=== PATIENT | male | born 1930 | race Caucasian/White ===

== ENCOUNTER 2017-03-19 07:40 | Inpatient (IN) | payer OTHER ==
--- NOTE | 2017-03-19 07:36 | EDPHY ---
H & P Constitutional: Initial Vital Signs Temperature (C) 36.7 C 03/19/17 07:54 Heart Rate 92 03/19/17 07:54 Respiratory Rate 18 03/19/17 07:54 Blood Pressure 111/94 H 03/19/17 07:54 O2 Sat (%) 92 03/19/17 07:54 O2 Delivery Mode Room Air Allergies/Adverse Reactions: No Known Drug Allergies Allergy (Verified 03/19/17 09:40) Home Medications: Medication Instructions Recorded Multivitamins [Multivitamin (*)] 1 each PO DAILY 03/19/17 Medical Decision Making - Diagnostics Imaging Results: Imaging Impressions Hip X-Ray 03/19/17 07:46 Impression: 1. Rightward rotational change which limits assessment of the right medial lung base. 2. Old healed left-sided rib fractures with no acute right-sided rib fractures or pneumothorax identified. 3. COPD. PORTABLE AP RIGHT HIP, TWO VIEWS 8:49 a.m.: The patient is not optimally positioned for this exam. There appears to be an acute right femoral fracture at the base of the neck near the intertrochanteric line with slight varus angulation. The bones are demineralized. The ischiopubic rami are intact. There is no symphysis pubis or SI joint diastasis. Impression: Limited positioning reveals a proximal right femoral fracture at the base of the neck near the intertrochanteric line. PORTABLE RIGHT KNEE, SINGLE VIEW 8:51 a.m.: The exam is limited secondary to patient positioning. The distal femoral and proximal tibial prosthetic components are appropriately positioned, with no periprosthetic lucency. Impression: Limited evaluation detailing a right knee arthroplasty. Results were discussed with Dr. Isaiah Pérez at 9:30 a.m. on March 19, 2017. Knee X-Ray 03/19/17 07:46 Impression: 1. Rightward rotational change which limits assessment of the right medial lung base. 2. Old healed left-sided rib fractures with no acute right-sided rib fractures or pneumothorax identified. 3. COPD. PORTABLE AP RIGHT HIP, TWO VIEWS 8:49 a.m.: The patient is not optimally positioned for this exam. There appears to be an acute right femoral fracture at the base of the neck near the intertrochanteric line with slight varus angulation. The bones are demineralized. The ischiopubic rami are intact. There is no symphysis pubis or SI joint diastasis. Impression: Limited positioning reveals a proximal right femoral fracture at the base of the neck near the intertrochanteric line. PORTABLE RIGHT KNEE, SINGLE VIEW 8:51 a.m.: The exam is limited secondary to patient positioning. The distal femoral and proximal tibial prosthetic components are appropriately positioned, with no periprosthetic lucency. Impression: Limited evaluation detailing a right knee arthroplasty. Results were discussed with Dr. Isaiah Pérez at 9:30 a.m. on March 19, 2017. Head CT 03/19/17 07:47 Impression: 1. Limited due to patient motion artifact. 2. Right frontal petechial hemorrhage measuring 1 cm without mass effect. 3. Cerebrovascular atherosclerosis. 4. No definite acute infarct. 5. Moderate diffuse atrophy. 6. Moderate ischemic gliosis. 7. Recommend follow up. Findings and recommendations discussed with Emergency Department physician, Isaiah Pérez M.D. at 0810 hours, March 19, 2017. Final report concurs with initial preliminary interpretation. Chest X-Ray 03/19/17 09:08 Impression: 1. Rightward rotational change which limits assessment of the right medial lung base. 2. Old healed left-sided rib fractures with no acute right-sided rib fractures or pneumothorax identified. 3. COPD. PORTABLE AP RIGHT HIP, TWO VIEWS 8:49 a.m.: The patient is not optimally positioned for this exam. There appears to be an acute right femoral fracture at the base of the neck near the intertrochanteric line with slight varus angulation. The bones are demineralized. The ischiopubic rami are intact. There is no symphysis pubis or SI joint diastasis. Impression: Limited positioning reveals a proximal right femoral fracture at the base of the neck near the intertrochanteric line. PORTABLE RIGHT KNEE, SINGLE VIEW 8:51 a.m.: The exam is limited secondary to patient positioning. The distal femoral and proximal tibial prosthetic components are appropriately positioned, with no periprosthetic lucency. Impression: Limited evaluation detailing a right knee arthroplasty. Results were discussed with Dr. Isaiah Pérez at 9:30 a.m. on March 19, 2017. Hip X-Ray 03/19/17 09:48 Impression: Acute mildly displaced right femoral neck fracture. Imaging: Discussed imaging studies w/ scallop cutter machine Radiologist ED Course/Re-evaluation: CHIEF COMPLAINT: Traumatic knee pain HISTORY OF PRESENT ILLNESS: The patient is a 86 y/o male, who lives independently at [facility], arriving via ambulance for right knee pain secondary to a witnessed fall this morning. Patient nor facility staff are initially unable to provide any medical history. ED RN contacted staff and they report he lives independently and has no significant medical diagnoses; however , he is scheduled to move to a memory care unit at the end of the month. They deny anticoagulant use. Per EMS, staff described a mechanical fall. The patient was walking with a breakfast tray and stumbled, falling to the ground and landing on his right side. The patient only complains of pain to his right knee but his right leg is significantly shortened and externally rotated. REVIEW OF SYSTEMS: A 10 point review of systems was performed and is negative with the exception of the elements mentioned in the history of present illness. PHYSICAL EXAM: HR, BP, O2 Sat, RR. Temp noted General Appearance: Alert, well hydrated, disoriented, and non-toxic appearing. Head: Small non-suturable abrasion to right eyebrow. Otherwise atraumatic without scalp tenderness or obvious injury Eyes: Pupils equal, round, reactive to light and accommodation, EOMI, no trauma , no injection. Throat: There is no erythema or exudates, no lesions, normal tonsils, mucus membranes moist. Neck: Supple, nontender, no lymphadenopathy. Respiratory: No retractions, no distress, no wheezes, and no accessory muscle use. Lungs are clear to auscultation bilaterally. Cardiovascular: Regular rate and rhythm, no murmurs, rubs, or gallops. Right dorsalis pedis pulse intact. Good capillary refill all extremities. Gastrointestinal: Abdomen is soft, nontender, non-distended, no masses, no rebound, no guarding, no peritoneal signs. Musculoskeletal: Tenderness to right knee and right hip, ROM differed due to pain. Leg is short and externally rotated. Otherwise, other main extremities have active ROM, atraumatic. No chest wall tenderness. Neurological: Alert, confused, and interactive. Non-focal neuro exam. Reported dementia at baseline. Skin: No rashes, good turgor, no nodules on palpation. Past medical history: No anticoagulant use Past surgical history: Right knee replacement Family history: Unknown Social history: Lives in independent living at [facility]. DIAGNOSTICS/PROCEDURES/CRITICAL CARE TIME: Head CT showed small right frontal petechial hemorrhage. Right hip X-ray showed right impacted femoral neck fracture. Right knee X-ray shows knee prior replacement. I viewed the image myself. DIFFERENTIAL DIAGNOSIS: The differential diagnosis for the patient's trauma included but was not limited to petechial hemorrhage, right femoral neck fracture, intracranial injury, long bone and pelvic bone fractures, spinal injury, intra-abdominal injury, and intra-thoracic injury. MEDICAL DECISION MAKING: This is an elderly 86 y/o male who presents with acute right hip tenderness secondary to what sounds like a mechanical fall this morning. He is confused, but after discussion with [facility] staff, this sounds like it is his baseline and he is scheduled for transfer to memory care unit. Further history limited, though facility denies anticoagulant use. He has a shortened and externally rotated right leg and a small abrasion to his right eyebrow on exam. Plan for IV, labs, UA, head, hip, and leg imaging, and pain management with 0.5 mg IV Dilaudid. Head CT shows small right frontal petechial hemorrhage per Dr. Horan. Hip x- ray shows femoral neck fracture. Patient will require admission for surgical repair of his fracture as well as neurosurgery consult for intracranial hemorrhage. Chest x-ray is negative for acute process. 0920: Consulted with Dr. Holguin, neurosurgery. He will come assess patient in the ED. 0924: Consulted with Dr. Robbins, trauma surgeon. He will evaluate patient in the ED. 0937: Consulted with Dr. Rene, orthopedist. He will evaluate patient after trauma service has assessed him. 1015: Consulted in the ED with Dr. Jacob, neurosurgery. He recommendation repeat head CT in 4 hours if patient has not gone to surgery. Cleared for surgery. Repeated hip x-ray with traction to better visualize fracture. Results clearly show femoral neck fracture and not intertrochanteric fracture. Dr. Freeman and Dr. Jacob have cleared patient for hip surgery. Dr. Rene plans to repair the hip today. Spoke with the hospitalist service and Dr. Laird accepts admission. - Data Points Laboratory Results: Laboratory Results 03/19/17 08:43 03/19/17 08:43 03/19/17 03/19/17 03/19/17 08:43 08:43 08:43 WBC 9.31 10^3/uL 10^3/uL (3.80-9.50) RBC 5.14 10^6/uL 10^6/uL (4.40-6.38) Hgb 15.9 g/dL g/dL (13.7-17.5) Hct 46.8 % % (40.0-51.0) MCV 91.1 fL fL (81.5-99.8) MCH 30.9 pg pg (27.9-34.1) MCHC 34.0 g/dL g/dL (32.4-36.7) RDW 15.9 % H % (11.5-15.2) Plt Count 222 10^3/uL 10^3/uL (150-400) MPV 10.0 fL fL (8.7-11.7) Neut % (Auto) 78.4 % H % (39.3-74.2) Lymph % (Auto) 11.9 % L % (15.0-45.0) [place] % (Auto) 7.8 % % (4.5-13.0) Eos % (Auto) 0.8 % % (0.6-7.6) Baso % (Auto) 0.5 % % (0.3-1.7) Nucleat RBC Rel Count 0.0 % % (0.0-0.2) Absolute Neuts (auto) 7.29 10^3/uL H 10^3/uL (1.70-6.50) Absolute Lymphs (auto) 1.11 10^3/uL 10^3/uL (1.00-3.00) Absolute Monos (auto) 0.73 10^3/uL 10^3/uL (0.30-0.80) Absolute Eos (auto) 0.07 10^3/uL 10^3/uL (0.03-0.40) Absolute Basos (auto) 0.05 10^3/uL 10^3/uL (0.02-0.10) Absolute Nucleated RBC 0.00 10^3/uL 10^3/uL (0-0.01) Immature Gran % 0.6 % % (0.0-1.1) Immature Gran # 0.06 10^3/uL 10^3/uL (0.00-0.10) PT 14.7 SEC SEC (12.0-15.0) INR 1.15 (0.83-1.16) APTT 32.7 SEC SEC (23.0-38.0) Sodium 139 mEq/L mEq/L (134-144) Potassium 4.4 mEq/L mEq/L (3.5-5.2) Chloride 107 mEq/L mEq/L (97-110) Carbon Dioxide 22 mEq/l mEq/l (22-31) Anion Gap 10 mEq/L mEq/L (8-16) BUN 13 mg/dL mg/dL (7-23) Creatinine 0.8 mg/dL mg/dL (0.7-1.3) Estimated GFR > 60 Glucose 106 mg/dL H mg/dL (70-100) Calcium 9.1 mg/dL mg/dL (8.5-10.4) Medications Given: Discontinued Medications Hydromorphone HCl (Dilaudid) 0.5 mg IVP EDNOW ONE Stop: 03/19/17 09:54 Last Admin: 03/19/17 10:16 Dose: 0.5 mg Departure - Departure Disposition: [facility] Inpatient Acute Clinical Impression: Petechial hemorrhage Femoral neck fracture Qualifiers: Encounter type: initial encounter Fracture type: closed Laterality: right Qualified Code(s): S72.001A - Fracture of unspecified part of neck of right femur, initial encounter for closed fracture Condition: Fair Report Scribed for: Isaiah Pérez Report Scribed by: Lokesh Hickey Date of Report: 03/19/17 Time of Report: 07:50
[2017-03-19 08:50] LABS: % IMMATURE GRANULYOCYTES 0.6 % (0.0-1.1); ABSOLUTE IMMATURE GRANULOCYTES 0.06 10^3/uL (0.00-0.10); ADD DIFF? NO; ADD MORPH? NO; ADD SCAN? NO; ATYPICAL LYMPHOCYTE FLAG 0 (0-99); FRAGMENT RBC FLAG 0 (0-99); HEMATOCRIT 46.8 % (40.0-51.0); HEMOGLOBIN 15.9 g/dL (13.7-17.5); LEFT SHIFT FLG 10 (0-99); LIPEMIA HEMOLYSIS FLAG 90 (0-99); MEAN CELL HEMOGLOBIN 30.9 pg (27.9-34.1); MEAN CELL VOLUME 91.1 fL (81.5-99.8); PLATELET CLUMPS FLAG 0 (0-99); PLATELET COUNT 222 10^3/uL (150-400); RED BLOOD CELL COUNT 5.14 10^6/uL (4.40-6.38); RED CELL DISTRIBUTION WIDTH 15.9 % (11.5-15.2)
[2017-03-19 09:13] LABS: ANION GAP 10 mEq/L (8-16); CALCIUM 9.1 mg/dL (8.5-10.4); CARBON DIOXIDE 22 mEq/l (22-31); CHLORIDE 107 mEq/L (97-110); CREATININE 0.8 mg/dL (0.7-1.3); GLOMERULAR FILTRATION RATE > 60; GLUCOSE 106 mg/dL (70-100); POTASSIUM 4.4 mEq/L (3.5-5.2); SODIUM 139 mEq/L (134-144)
[2017-03-19 09:18] LABS: INR 1.15 (0.83-1.16); PROTIME(PATIENT) 14.7 SEC (12.0-15.0)
[2017-03-19 09:19] LABS: APTT 32.7 SEC (23.0-38.0)
[2017-03-19] MEDS ORDERED: HYDROmorphONE/DILAUDID 1 MG/ML SYR IVP ONE (09:53)
--- NOTE | 2017-03-19 10:44 | GCON ---
[f rep st] CONSULTATION HISTORY OF PRESENT ILLNESS: This is an 86-year-old gentleman, who had a witnessed fall at [facility] where he resides, and was found to have had a head injury, and complained of right hip pain. Th e patient was brought to the emergency room for evaluation. X-rays at the time, shows a right hip f racture, and a small cortical bleed, which has been evaluated by Dr. Adames from neurosurgery, and de emed stable, and non-operative. No need for inpatient evaluation or further care. The patient has no known past medical history, is unable to give us that information because of jean-pierre ntia. ALLERGIES: He has no known drug allergies. MEDICATIONS: Takes multivitamins at his [facility]. REVIEW OF SYSTEMS: The patient denies any current pain or problems. His medical history seems to be significant for having a previous knee replacement on the left, othe rwise, none is available. PHYSICAL EXAMINATION: VITAL SIGNS: Temperature of 36, 7, heart rate of 92, blood pressure of 111/9 4, with a respiratory rate of 18, saturating 92% on room air. GENERAL: He is alert, but disoriente d. He cannot tell us where he is. He believes he is back in [facility]. HEENT: He has intac t extraocular motions. Pupils are equal and 3 mm. His right gnosticism has a small dried laceration, w ith dried blood on it, less than 1 cm accumulative. His bite is intact. NECK: Midline trachea. No JVD, thyromegaly, 2+/2+ carotid pulses. He has no bony deformity of the chest cage. He has no t enderness to palpation or unstableness to compression. ABDOMEN: Soft, it is protuberant. There ar e no signs of intraabdominal injury. No [place] sign. EXTREMITIES: His hip on the right is tender to palpation and movement. His left hip is nontender. He has good pulses, 2+/2+ femoral bilaterall y, and weak 1+/2+ equal posterior tibial pulses. He has no rashes, no skin change in turgor or tone . LABORATORY STUDIES: Show a white blood cell count of 9.3, hemoglobin of 15, hematocrit of 46, plate let count of 222. He has coagulation showing INR of 1.15. Chemistry showed sodium 139, potassium 4 .4, chloride 107, bicarb 22, BUN 13, creatinine 0.7, and glucose of 106, which is slightly elevated. All of his films have been personally reviewed by me. Hip x-ray shows an acute right femoral intert rochanteric fracture. Left knee, old, is not performed. Chest x-ray shows old rib fractures, with no left-sided rib fractures. No acute right-sided rib fractures. Head CT is also personally review ed. He has a frontal petechial hemorrhage, less than 1 cm without mass effect, atherosclerosis. IMPRESSION: From a trauma standpoint, is that he has a single isolated injury to his right trochant er and a non-operative intraparenchymal bleed that is stable. He has been cleared by Neurosurgery t o be discharged back to his care facility straight from the hospital without need for inpatient care . Deemed fine to go to the operating room, and I believe he can be admitted by Medicine, and follow ed by them. I will be happy to reassess if need be. /[id number]/MODL
[2017-03-19] MEDS ORDERED: ONDANSETRON 4 MG/2 ML VIAL IVP PRN (10:56)
[2017-03-19] MEDS ORDERED: ONDANSETRON DISINTEGRATING 4 MG TAB PO PRN (10:56)
[2017-03-19] MEDS ORDERED: oxyCODONE IR 5 MG TAB PO PRN (10:56)
--- NOTE | 2017-03-19 11:49 | GHP ---
[f rep st] HISTORY AND PHYSICAL DATE OF ADMISSION: 03/19/2017 CHIEF COMPLAINT: Fall. HISTORY OF PRESENT ILLNESS: This is an 86-year-old man, who lives independently at [facility], presented with a fall. He tells me he thinks he fell on his back a few days ago. In reading the E D report, it sounds as though he had a witnessed fall this morning. He was then sent in by EMS. He tells me that he does have some pain in his hip. He has feeling in his foot. He can move his foot . He does not have any weakness in his upper or lower extremities. He has sensation throughout. H e is mostly fixated on allergies that he and some childhood friends had, more so than what is going on currently. He does, however, tell me that he can walk a few miles before he gets tired. PAST MEDICAL/SURGICAL HISTORY: Dementia. MEDICATIONS: Please see my medication reconciliation. ALLERGIES: There are no known drug allergies. It sounds as though he has seasonal allergies. SOCIAL HISTORY: He lives independently at [facility]. He grew up in [facility]. FAMILY HISTORY: Parents are . REVIEW OF SYSTEMS: A 10-point review of systems is conducted and is negative except per HPI. PHYSICAL EXAM: VITAL SIGNS: Blood pressure 111/94, heart rate 92, respiration rate 18, saturating 98% on room air, temperature is 36.7. GENERAL: The patient is a pleasant elderly man, who is lying on his back. Appears somewhat uncomfortable. HEENT: Shows him to have a small amount of clotted blood in his right forehead. CARDIOVASCULAR: Shows him to have very distant S1 and S2. I am not a ppreciating any murmurs, rubs, or gallops. PULMONARY: Shows his lungs to be clear to auscultation bilaterally. ABDOMEN: Soft, nontender, nondistended. SKIN: No rash : There is no Blue. NEUR OLOGIC: Shows him to have some trouble with recent events. He has 5/5 motor in his upper and lower extremities. He has sensation to light touch intact in his upper and lower extremities. PSYCHIATR IC: Shows normal mood and affect. EXTREMITIES: Shows his right lower extremity to be externally r otated, and slightly shortened. He is able to move his foot, and his foot is warm. LABORATORY DATA: 1. CBC is unremarkable. INR is 1.1. Basic metabolic panel is normal. 2. I reviewed Dr. Freeman's consult note. 3. Hip x-ray, which I personally reviewed and interpreted, shows a femoral neck fracture. 4. Chest x-ray, which I personally reviewed and interpreted, shows nothing acute. 5. Knee x-ray shows a right knee arthroplasty. 6. Head CT scan shows a small 1 cm right frontal petechial hemorrhage without mass effect. IMPRESSION AND PLAN: An 86-year-old man with a fall presents with right hip fracture and small intr acranial petechial hemorrhage. 1. Right hip fracture: Dr. Rene plans to take him to the operating room today. In terms of hi s perioperative evaluation, he tells me that he is able to ambulate for miles without getting short of breath or having to stop. He can attain 4 METs. I will go ahead and get a preoperative EKG. 2. Small intracranial hemorrhage: Appreciate Neurosurgery's evaluation. They are recommending a f ollowup CT in 4 hours. I have requested that they weigh in on whether or not prophylactic anticoagu lation would be safe following his hip surgery for hip fracture, which would put him at high risk fo r a clot. 3. Dementia: Has been living independently; however, family had planned to move him into a memory care unit at the end of this month. 4. Code status: I reviewed his MOLST form in which he is a do not resuscitate. He would want anti biotics, but did not weigh in on artificially administered nutrition and hydration. /[id number]/MODL
[2017-03-19] MEDS: NS 1,000 ML IV SCH (12:39)
[2017-03-19] MEDS: HYDROmorphONE/DILAUDID 1 MG/ML SYR IVP PRN (12:43)
--- NOTE | 2017-03-19 13:10 | CPEKG ---
Heart Rate: 80 RR Interval: 750 P-R Interval: 244 QRSD Interval: 116 QT Interval: 428 QTC Interval: 494 P Mckenzie: -33 QRS Mckenzie: 119 T Wave Mckenzie: 140 EKG Severity - ABNORMAL ECG - EKG Impression: FIRST DEGREE AV BLOCK EKG Impression: IRBBB AND LPFB EKG Impression: WANDERING ATRIAL PACEMAKER Electronically Signed By: Nathaniel Starks 19-Mar-2017 16:32:25
--- NOTE | 2017-03-19 13:24 | GCON ---
[f rep st] CONSULTATION NEUROSURGICAL CONSULTATION DATE OF CONSULTATION: 03/19/2017, approximately 11:00 a.m in the Emergency Room. REASON FOR CONSULTATION: Intracranial bleed. HISTORY OF PRESENT ILLNESS: History difficult to obtain due to patient's advanced dementia. Much of his history was obtained through review of his medical record. This patient is an 86-year-old male who was brought in by ambulance after a mechanical fall at his independent living facility, [facility]. He was witnessed walking during breakfast when he stumbled and fell to the ground landing on his right side. After the fall the patient complained of right knee pain and EMS was called. It is unkown if the patient suffered loss of consciousness following the injury. Patient does not recall the event. The staff at his facility states he is scheduled to move into a memory care unit at the end of the month. Patient was found to have a hip fracture while in the ED. Patient denies any headache, dizziness or extremity weakness.Patient does complain of dry mouth, REVIEW OF SYSTEMS: Review of systems was performed and is negative with the exception of what is noted in the HPI. PAST MEDICAL HISTORY: Difficult to obtain due to patient's advanced dementia. Review of the medical record does not provide further information PAST SURGICAL HISTORY: Significant for right knee replacement. FAMILY HISTORY: Unknown due to patient's advanced dementia. SOCIAL HISTORY: Unknown due to patient's advanced dementia. MEDICATIONS: Unknown due to patient's advanced dementia ALLERGIES: NKDA PHYSICAL EXAM: VITAL SIGNS: Temperature 36.7, heart rate 92, respiratory rate 18, blood pressure 111/94, oxygen saturation 92% on room air. GENERAL APPEARANCE : Alert but disoriented. No acute distress. EYES: PERRLA. EOMs intact. NEUROLOGIC: Cranial nerves 2-12 grossly intact 2 through. Strength 5/5 bilateral upper and lower extremities and equal. Right leg difficult to examine due to hip fracture. Sensation grossly intact. DIAGNOSTIC REVIEW: CT brain without contrast shows right frontal petechial hemorrhage measuring 1 cm without mass effect, cerebral vascular atherosclerosis. No dependent definite acute infarct. Moderate diffuse atrophy. Moderate ischemic gliosis. ASSESSMENT AND PLAN: 86 year old male s/p GLF at this snf who has evidence of a small intracranial bleed. He also was found to have a right hip fracture. Patient was seen by Dr. Jacob and myself in the ER today. Would recommended a repeat head CT in [address] stable, cleared to go to operating room for repair of hip fracture. Recommend Q2 hr neuro checks. Recommendation on DVT prophylaxis will be based on results of repeat head CT. 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 Will continue to follow. Please notify neurosurgery with any change in neuro or motor exam /[id number]/MODL Eboni Kong MA, MPAS PAC MTDD
--- NOTE | 2017-03-19 13:39 | SOAPPROG ---
SOAP Progress Note Assessment/Plan: Assessment: 86 yo M with displaced, transcervical left femoral neck fx, and small IC petechial hemorrhage. Plan: I discussed case with MPOA - Rohith Newton, in [place] and pt's cousin ( , home [phone]). R/B/A of non-op vs op care discussed. He has stated that Mr Kasper would want his hip fixed to restore ambulation. He will provide phone consent for the surgery. All of his questions have been answered. We will proceed with cemented L hip bipolar hemiarthroplasty once medically cleared and deemed safe by Marlen santos 2/2 [facility]. Per my discussion with Dr Jacob, repeat CT will be done within next 30 mins to reassess IC hemorrhage. Keep NPO. Bedrest. TEDs/SCDs. Abx to be ordered. Please call with any ?s. 03/19/17 13:39 03/19/17 13:45 Subjective: 86yo M s/p mechanical fall this AM, while walking with his breakfast tray, striking his left hip and head. He was unable to bear weight after his fall. He did not eat any of his breakfast per Keith Aguilar' report. He c/o R hip pain, denying any numbness or tingling. Objective: Vital Signs Temp Pulse Resp BP Pulse Ox 37.0 C 86 22 H 125/88 H 92 03/19/17 11:35 03/19/17 11:35 03/19/17 11:35 03/19/17 11:35 03/19/17 11:35 PT 14.7 SEC (12.0-15.0) 03/19/17 08:43 INR 1.15 (0.83-1.16) 03/19/17 08:43 R hip w/o ecchy/edema/calor/erythema. Skin intact. Min TTP. +logroll. In ER and shortened. No TTP thigh --> foot of RLE. Calves NT, neg Qiana's, no edema. DNVI BLE's. Secondary survey negative. ICD10 Worksheet Patient Problems: Problems Problem Status Onset Femoral neck fracture Acute Petechial hemorrhage Acute
[2017-03-19] MEDS ORDERED: BUPIVACAINE/EPI 0.25% 30 ML SDV ONE ×2 (15:05→18:15)
--- NOTE | 2017-03-19 15:20 | GCON ---
[f rep st] CONSULTATION ORTHOPEDIC CONSULTATION DATE OF CONSULTATION: 03/19/2017 CHIEF COMPLAINT (REASON FOR REFERRAL): This 86-year-old male was brought in from [facility] ere he resides with a right hip fracture. He was initially seen in the emergency department and [facility] was requested. HISTORY OF PRESENT ILLNESS: The patient lives independently at [facility] and was walking with his breakfast tray this morning when he tripped and fell onto the right side of his body. This was a witnessed fall. The ambulance was called and he was then brought to the emergency department whe re he was evaluated. The patient is somewhat of a poor historian but does say that he is having rig ht leg pain at this time. He denies any other pain at the time of my exam. Upon review of the [facility] ent's chart, it is noted that the patient was to soon be moved into a memory care unit at the end of this month at [facility]. Currently, the patient is denying any headache, dizziness, nausea, vomiting or abdominal pain. REVIEW OF SYSTEMS: Reviewed and is negative except as mentioned above. PAST MEDICAL HISTORY: The patient has had a right knee replacement. It is also reported that the p atyvette has a history of dementia. When speaking with [facility], it was reported that he other clements does not have any known medical conditions. ALLERGIES: No known drug allergies. SOCIAL HISTORY: The patient lives independently at [facility]. FAMILY HISTORY: Patient's parents are . PAST SURGICAL HISTORY: Significant for a known right knee replacement. PHYSICAL EXAMINATION: VITAL SIGNS: Patient's temperature is 36.7, heart rate of 92, respiratory ra te of 18, blood pressure 111/94 with oxygen saturation at 92% on room air. GENERAL APPEARANCE: The patient is tired but I am able to wake him and ask him questions which he seems to be answering carlos ropriately. He does not appear to be in any acute distress. HEENT: Eyes: Pupils are equal, round , reactive to light. Extraocular movements are intact. The nose reveals patent nares with no bleed ing. Oral exam reveals dry mucous membranes but no intraoral injury visible. NECK: Palpation of t he patient's neck does not reveal any tenderness over the cervical spine. I am able to help him rot ate his neck and flex and extend and this did not cause any increased pain. I do not feel any step offs or deformities at the cervical spine. Anteriorly, he is nontender and does not have any thyroi d enlargement or masses palpable. LUNGS: Patient's breathing is unlabored. Lungs are clear to aus cultation without any wheezes, rhonchi, or rales. CARDIOVASCULAR: Patient has a regular rate and r hythm, with no audible murmurs, rubs or gallops. Distally, his pulses are equal and intact. He has normal capillary refill in both upper and lower extremities. NEUROVASCULAR: Patient has good sens ation to light touch to both upper extremities and lower extremities equally. GASTROINTESTINAL: Fredrick evangelista's abdomen is soft, nontender with no rebound, rigidity or guarding. No masses are palpated. MUSCULOSKELETAL: Patient does have tenderness at the right hip and is resting in an externally rota andrew position. The remainder of his leg appears normal and I am not able to elicit any tenderness; h owever, I did not take him through full range of motion of the right lower extremity given the known hip fracture. The rest of his extremities, in addition to his chest and ribs, are nontender to pal pation. SKIN: The patient has 3 superficial abrasions/lacerations above the right eyebrow. These are not actively bleeding and he does not seem to have any hematoma around these. The orbits are no ntender. DIAGNOSTIC DATA: X-ray of the right hip was obtained in the emergency department which does show a right femur fracture at the base of the neck near the intertrochanteric line with varus angulation. He had a right knee x-ray which does not show any acute injury. He has had a previous right knee r eplacement, as mentioned above. A portable AP supine chest was also done and shows some old left-sided healing rib fractures but no acute right-sided rib fractures or pneumothorax. Patient also has COPD noted on his chest x-ray. A head CT without contrast was also ordered and did show a 1 cm frontal petechial hemorrhage without mass effect. EKG was ordered which shows a first-degree AV block as well as a wandering pacemaker. This was inte rpreted by Dr. Laird. IMPRESSION/PLAN: This 86-year-old man presents with a right hip fracture and a small intracranial p etechial hemorrhage. 1. Right hip fracture. Dr. Rene plans to take the patient to surgery later this afternoon to r epair the hip fracture. 2. The patient has a small intracranial hemorrhage and is currently having a second CT to evaluate the status of this bleed. After this is completed, DVT prophylaxis will be assessed. The patient w ill shortly be consented for surgery when he returns from his CT scan. /[id number]/MODL
[2017-03-19] MEDS ORDERED: ceFAZolin 2 GM/DEXTROSE 100 ML IV ONE (16:30)
[2017-03-19] MEDS ORDERED: LIDOCAINE 2% 100 MG/5 ML SYR ONE (16:39)
[2017-03-19] MEDS ORDERED: DEXAMETHASONE 4 MG/ML VIAL ONE (16:39)
[2017-03-19] MEDS ORDERED: ONDANSETRON 4 MG/2 ML VIAL ONE (16:39)
[2017-03-19] MEDS ORDERED: fentaNYL 100 MCG/2 ML INJ ONE (16:39)
[2017-03-19] MEDS ORDERED: PROPOFOL 200 MG/20 ML VIAL ONE (16:40)
[2017-03-19] MEDS ORDERED: epHEDrine SULFATE 10 MG/ML SYR ONE (18:29)
--- NOTE | 2017-03-19 19:14 | POSTOPPROG ---
Post Op Note Date of Operation: 03/19/17 Surgeon: Filippo Rene Guardian Ad Litem: CHRISTEN Eagle Anesthesia: GET(General Endotracheal) Pre-op Diagnosis: R fem neck fx Post-op Diagnosis: same Procedure: R hip teodoro Findings: TC closed R fem neck fx Inf/Abcess present in the surg proc area at time of surgery?: No EBL: 50-100 (75cc) Complications: None Specimen(s): None
--- NOTE | 2017-03-19 20:30 | GOP ---
[f rep st] OPERATIVE REPORT DATE OF OPERATION: 03/19/2017 SURGEON: Filippo Rene MD PAPER GRADER: Michelle Snowden PA-C. ANESTHESIA: General. ANESTHESIOLOGIST: Dr. Bailey. PREOPERATIVE DIAGNOSIS: Right femoral neck fracture. POSTOPERATIVE DIAGNOSIS: Right femoral neck fracture. PROCEDURE PERFORMED: Right hip bipolar hemiarthroplasty. FINDINGS: Comminuted and transcervical closed right femoral neck fracture with complete displacemen t. 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 Bone quality was good. SPECIMENS: None. ESTIMATED BLOOD LOSS: 75 cc. INDICATIONS: 86-year-old male, who suffered a fall while walking with his breakfast tray at his [facility] center. This was apparently a mechanical fall as witnessed by the staff at his living center. He was unable bear weight at the time and therefore was brought to the emergency department. He was found to have a right hip fracture. After discussing the risks, benefits, alternatives with his [facility] power of workers compensation defense attorney, who is his cousin living in [place], they elected to proceed with surgery . The risks, benefits, and alternatives were discussed. A phone consent was obtained and placed in the patient's chart. All questions were answered prior to surgery. DESCRIPTION OF PROCEDURE: The patient was identified in the preop holding area, and his right hip w as signed and designated as the operative site. The patient was confirmed in left lower extremity S CD. He was treated with 2 g IV prophylactic cefazolin, and taken back to the operating room by the anesthesia team. General anesthesia was obtained. A Blue was placed. The patient was then transf erred from his gurney to the OR table in the lateral decubitus position, and positioned with standar d hip auto parts manager. Down leg was padded around the proximal fibula as well as heel and ankle with foam egg crate padding. The right lower extremity was then prepped and draped in the usual sterile manner. Standard posterolateral approach was utilized for the surgery. A 12 cm curvilinear incision was will tered over the greater trochanter. Full-thickness dermal incision was made with a #10 blade and car eful dissection was taken down through the subcutaneous fat with Bovie cautery device. All small cr ossing vessels were coagulated. The IT band was identified and divided from the greater trochanter inferiorly in parallel with its fibers. Then careful dissection was taken posteriorly through the v moon thin gluteus christofer muscle fibers. The underlying greater trochanteric bursa was excised. A C harnley retractor was placed. With sequential internal rotation, the posterior dissection was carried along the posterior aspect o f the greater trochanter. The piriformis tendon was identified and tagged and then released from it s insertion site at the greater trochanter. The short external rotators were then carefully release d from their insertions at the greater trochanter and vessels were coagulated. Capsular stitches we re placed with #1 Ethibond sutures. With further internal rotation, the proximal femur was exposed appropriately and careful dissection was taken down to the level of the lesser trochanter. A standa rd neck cut was then placed approximately 1 fingerbreadth superior to the lesser trochanter. The fr actured segment was then removed from the surgical field. The femoral head was then identified and a pointed reamer was utilized in order to thread into the femoral head and then resection of the fem oral head was obtained with removal from the joint in toto. The head was inspected and sized to 52 mm. An additional ball sizing device was utilized in order to confirm appropriate sizing within the acetabulum. The joint was then copiously irrigated with sterile saline. A small loose body was re moved from the femoral acetabular joint. With the femoral elevator and blunt Hohmann placed underneath the neck, a box osteotome was used to enter the proximal femur. A sounding reamer was first utilized and then the patient was reamed up t o a size 5 distally. Next, standard sequential broaching was performed with approximately 25-30 deg karmen of anteversion. A size 5 broach was then found to be of the appropriate fit and this was left in place for trialing. A 26 x 52 mm standard neck with neck length of 25 mm was utilized and neck a ngle of 132 degrees. This was found to be very stable with appropriate leg lengths testing and norm al rectus test. He was stable to 45 degrees of internal rotation with flexion to 90 degrees. In sl eep position he was stable, and with internal rotation he was further stable to about 45 degrees. A s a result, the trial component was removed and the proximal femur was readied for cementation. A distal cement restrictor was placed. A third generation cementing technique was utilized after pr eparation of the femur with pulsatile lavage and suction. The femoral stem was then cemented in carlos roximately 25 degrees of anteversion and with the stem entirely seated down along the calcar. This was held in place and the cement was allowed to harden and mature. Once this was completed, a 2nd t rial was performed with the trial components. This was again found to be an appropriate reconstruct ion. Formal bipolar head was then placed onto the Tilley taper with excellent Tilley taper engagement confirmed by attempts to dislodge the head. Final reduction was performed. The patient was exceed ingly dry without any significant bleeding and therefore no drain was used. The wound and joint wer e again copiously irrigated with sterile saline. Closure was then begun. Multiple drill holes through the posterior aspect of the greater trochanter were utilized to repair the capsule via the capsular stitches. Piriformis was repaired down to the superior aspect of the g reater trochanter. Next, the IT band was closed with multiple interrupted #1 Ethibond sutures. The deep fat space was closed with multiple 0 Vicryl sutures. 2-0 Vicryl was used to close the deep de rmal layer. Norton were then finally used to close the skin. Sterile postop surgical dressings we re applied. An abduction pillow was applied after bilateral lower extremity WHITNEY hose and SCDs. The patient was then returned to the supine position and transferred to his gurney, and the anesthesia service took over to wake him up. TOURNIQUET TIME: None. DRAINS: None. IMPLANTS: [place] OmniFit HFx hip stem size #5 with a neck length of 25 mm, a neck angle of 132 deg karmen. A 26 x 52 mm UHR [place] bipolar head and components. A distal cement restrictor was place d. COMPLICATIONS: None. DISPOSITION: The patient was extubated and transferred to PACU in stable condition. /[id number]/MODL
[2017-03-20 04:47] LABS: % IMMATURE GRANULYOCYTES 0.7 % (0.0-1.1); ABSOLUTE IMMATURE GRANULOCYTES 0.12 10^3/uL (0.00-0.10); ADD DIFF? NO; ADD MORPH? NO; ADD SCAN? NO; ATYPICAL LYMPHOCYTE FLAG 0 (0-99); FRAGMENT RBC FLAG 20 (0-99); HEMATOCRIT 38.4 % (40.0-51.0); HEMOGLOBIN 12.9 g/dL (13.7-17.5); LEFT SHIFT FLG 10 (0-99); LIPEMIA HEMOLYSIS FLAG 80 (0-99); MEAN CELL HEMOGLOBIN 31.9 pg (27.9-34.1); MEAN CELL HEMOGLOBIN CONCENTR. 33.6 g/dL (32.4-36.7); MEAN CELL VOLUME 94.8 fL (81.5-99.8); MEAN PLATELET VOLUME 10.4 fL (8.7-11.7); PLATELET CLUMPS FLAG 0 (0-99); PLATELET COUNT 206 10^3/uL (150-400); RED BLOOD CELL COUNT 4.05 10^6/uL (4.40-6.38); RED CELL DISTRIBUTION WIDTH 15.9 % (11.5-15.2)
[2017-03-20 05:07] LABS: ALANINE AMINOTRANSFERASE 36 IU/L (21-72); ALBUMIN 2.8 g/dL (3.5-5.0); ALKALINE PHOSPHATASE 83 IU/L (38-126); ANION GAP 7 mEq/L (8-16); ASPARTATE AMINOTRANSFERASE 26 IU/L (17-59); BILIRUBIN,TOTAL 0.9 mg/dL (0.1-1.4); CALCIUM 8.8 mg/dL (8.5-10.4); CARBON DIOXIDE 24 mEq/l (22-31); CHLORIDE 106 mEq/L (97-110); CREATININE 0.7 mg/dL (0.7-1.3); GLOMERULAR FILTRATION RATE > 60; GLUCOSE 133 mg/dL (70-100); POTASSIUM 4.6 mEq/L (3.5-5.2); SODIUM 137 mEq/L (134-144); TOTAL PROTEIN 5.1 g/dL (6.3-8.2)
[2017-03-20] MEDS: HYDROmorphONE/DILAUDID 1 MG/ML SYR IVP PRN (05:29)
[2017-03-20] MEDS: NS 1,000 ML IV SCH ×2 (05:33→19:54)
[2017-03-20 05:49] LABS: COLOR YELLOW; LEUKOCYTE ESTERASE,URINE 1+ (NEGATIVE); NITRITE,URINE NEGATIVE (NEGATIVE)
[2017-03-20 05:52] LABS: MUCUS TRACE /lpf (NONE-1+); RBC,URINE 50-182 /hpf (0-3); WBC,URINE 25-50 /hpf (0-3)
--- NOTE | 2017-03-20 09:00 | SOAPPROG ---
SOAP Progress Note Assessment/Plan: Assessment/Plan: R femoral neck fracture s/p R hip hemiarthroplasty performed by Dr. Rene on 03/19/2017, POD#1 -Cont PT/OT -Cont current pain regimen as tolerated, monitor for increased confusion -Cont SCDs and TEDs for VTE mechanical prophylaxis -Pt may begin VTE chemoprophylaxis per medicine service -NS has signed off at this time -Pt will likely need 3 MN stay to qualify for rehab 03/20/17 09:14 03/20/17 13:36 Subjective: Pt seen at bedside. He cannot recall specifically why he is here, but states he has no significant pain at this time. He states he is tolerating his diet and medications well. He states he lives at [facility], and would like to return there when possible. He denies any pantoja/sob,cp, dizziness, syncope, sob, abd pain, n/v, or new onset n/t. He has no additional concerns or complaints at this time. Per nursing report, the patient pulled his own Blue catheter accidently this am. He has been up in chair assisted with PT, and with bed alarm. No significant complaints overnight. Objective: Vital Signs Temp Pulse Resp BP Pulse Ox 36.2 C 73 16 106/60 97 03/20/17 07:26 03/20/17 07:26 03/20/17 07:26 03/20/17 07:26 03/20/17 07:26 Laboratory Results 03/20/17 04:18 03/20/17 04:18 03/19/17 03/20/17 03/21/17 05:59 05:59 05:59 Intake Total 2127 Output Total 2305 Balance -178 PT 14.7 SEC (12.0-15.0) 03/19/17 08:43 INR 1.15 (0.83-1.16) 03/19/17 08:43 Pt seen at bedside. He is alert and oriented to place and time. He cannot recall why he is here or yesterday's procedure. VSS. Exam of RLE reveals post operative dressing, no significant drainage, erythema, calor or induration noted , intact dean. Thigh compartment is supple. Post calves are NTTP, no palpable vascular cords, neg Qiana's bilat. Pt moves leg and foot well. DNVI BLE. ICD10 Worksheet Patient Problems: Problems Problem Status Onset Femoral neck fracture Acute Petechial hemorrhage Acute
--- NOTE | 2017-03-20 10:01 | NEUSURGPN ---
Assessment/Plan: Assessment: 86 yo male that is s/p fall with small right sided IPH and hip fracture Plan: -s/p fall with small right sided IPH: CT head stable, neuro stable -s/p hip fracture repair-defer to ortho for this -pt ok from NS to start DVT prophylaxis per Dr Jacob in the late evening of or early am 03/21 -PT/OT/ST -call with any questions or concerns -NS to sign off at this time -warning signs given -follow up with Dr Coley team in 2-3 weeks Subjective: Awake and alert sitting in chair brushing teeth. No pantoja/neck/chest/abd or gu complaints. No f/c/n/v/d. Objective: AAO x 3, PERRLA/EOMI CN 2-12 grossly intact 03/12 BUE/BLE Neuro Check Frequency: per routine Urinary Catheter in Place: No Catheter Insertion Date: 03/19/17 - Physician Discussed Patient with Dr.: Jacob Neurosurgery Physical Exam - Vitals, I&O, Labs I and O 03/19/17 03/20/17 03/21/17 05:59 05:59 05:59 Intake Total 2127 Output Total 2305 Balance -178 Weight 63.6 kg Intake: IV Intake (ml) 1300 IV Infused (ml) 827 Ns 1,000 ml @ 75 mls/hr 827 IV CONT STEPH Rx#: [id number] Output: Urine (ml) 2230 Catheter 2230 Estimated Blood Loss (ml) 75 Vital Signs Temp Pulse Resp BP Pulse Ox 36.2 C 73 16 106/60 97 03/20/17 07:26 03/20/17 07:26 03/20/17 07:26 03/20/17 07:26 03/20/17 07:26 Laboratory Results 03/20/17 04:18 03/20/17 04:18 ICD10 Worksheet Patient Problems: Problems Problem Status Onset Femoral neck fracture Acute Petechial hemorrhage Acute
[2017-03-20] MEDS: MULTIVITAMINS 1 EACH TAB PO SCH (10:41)
[2017-03-20] MEDS: ACETAMINOPHEN 325 MG TAB PO PRN ×2 (10:41→18:14)
--- NOTE | 2017-03-20 14:31 | CPEKG ---
Heart Rate: 111 RR Interval: 541 P-R Interval: 224 QRSD Interval: 110 QT Interval: 337 QTC Interval: 458 P [place]: 101 QRS [place]: -34 T Wave [place]: 97 EKG Severity - ABNORMAL ECG - EKG Impression: WANDERING ATRIAL PACEMAKER/MULTIFOCAL ATRIAL TACHYCARDIA EKG Impression: FIRST DEGREE AV BLOCK EKG Impression: INCOMPLETE RBBB AND LAFB Electronically Signed By: Nadine Vaughan 22-Mar-2017 07:16:11
--- NOTE | 2017-03-20 15:33 | HOSPPROG ---
Hospitalist Progress Note Assessment/Plan: 86M presented from [facility] with likely mechanical fall. PMH significant for dementia with plans to move to memory unit soon. Found to have R femoral neck fx and small ICH. #. R fem neck fx s/p R hemiarthroplasty POD#1 reports no hip pain currently PT/OT recommending SNF rehab #. small intracranial hemorrhage CT stable NSG has cleared to start VTE ppx tonight follow up as outpatient with Dr. Jacob #. dementia: likely stable no family present for reviewing care today #. hypoxia: on 2-3 lpm to maintain saturations will repeat CXR today given worsening cough and elevated WBC count #. tachycardia: ECG shows ST with PACs/PSVT #. DVT ppx: start Enox this PM #. Dispo: > 48 hours and then likely d/c to rehab Subjective: Denies hip pain. Has been coughing. Feels afebrile. Not dyspneic at rest. Objective: Vital Signs Temp Pulse Resp BP Pulse Ox 98.5 F 94 18 146/84 H 93 03/20/17 12:00 03/20/17 12:00 03/20/17 12:00 03/20/17 12:00 03/20/17 12:00 Laboratory Results 03/20/17 04:18 03/20/17 04:18 03/19/17 03/20/17 03/21/17 05:59 05:59 05:59 Intake Total 2127 Output Total 2305 Balance -178 PT 14.7 SEC (12.0-15.0) 03/19/17 08:43 INR 1.15 (0.83-1.16) 03/19/17 08:43 - Physical Exam Constitutional: no apparent distress Eyes: PERRL, anicteric sclera Ears, Nose, Mouth, Throat: hard of hearing Cardiovascular: regular rate and rhythym Respiratory: reduced air movement, other (very rhonchorous) Skin: warm, normal color ICD10 Worksheet Patient Problems: Problems Problem Status Onset Femoral neck fracture Acute Petechial hemorrhage Acute
[2017-03-20] MEDS: ENOXAPARIN 40 MG/0.4 ML SYR SC SCH (19:48)
[2017-03-21] MEDS: ACETAMINOPHEN 325 MG TAB PO PRN ×4 (01:58→18:21)
[2017-03-21 05:27] LABS: % IMMATURE GRANULYOCYTES 0.5 % (0.0-1.1); ABSOLUTE IMMATURE GRANULOCYTES 0.07 10^3/uL (0.00-0.10); ADD DIFF? NO; ADD MORPH? NO; ADD SCAN? NO; ATYPICAL LYMPHOCYTE FLAG 0 (0-99); FRAGMENT RBC FLAG 0 (0-99); HEMATOCRIT 31.1 % (40.0-51.0); HEMOGLOBIN 10.4 g/dL (13.7-17.5); LEFT SHIFT FLG 20 (0-99); LIPEMIA HEMOLYSIS FLAG 80 (0-99); MEAN CELL HEMOGLOBIN 31.9 pg (27.9-34.1); MEAN CELL HEMOGLOBIN CONCENTR. 33.4 g/dL (32.4-36.7); MEAN CELL VOLUME 95.4 fL (81.5-99.8); MEAN PLATELET VOLUME 10.6 fL (8.7-11.7); PLATELET CLUMPS FLAG 0 (0-99); PLATELET COUNT 157 10^3/uL (150-400); RED BLOOD CELL COUNT 3.26 10^6/uL (4.40-6.38); RED CELL DISTRIBUTION WIDTH 16.1 % (11.5-15.2)
[2017-03-21 05:36] LABS: ANION GAP 3 mEq/L (8-16); CALCIUM 8.3 mg/dL (8.5-10.4); CARBON DIOXIDE 25 mEq/l (22-31); CHLORIDE 104 mEq/L (97-110); CREATININE 0.7 mg/dL (0.7-1.3); GLOMERULAR FILTRATION RATE > 60; GLUCOSE 95 mg/dL (70-100); POTASSIUM 4.2 mEq/L (3.5-5.2); SODIUM 132 mEq/L (134-144)
[2017-03-21] MEDS: MULTIVITAMINS 1 EACH TAB PO SCH ×2 (08:29→09:46)
[2017-03-21] MEDS: ENOXAPARIN 40 MG/0.4 ML SYR SC SCH (08:29)
--- NOTE | 2017-03-21 11:09 | SOAPPROG ---
<Samira Galicia - Last Filed: 03/21/17 11:09> SOAP Progress Note Assessment/Plan: Assessment/Plan: R femoral neck fracture s/p R hip hemiarthroplasty performed by Dr. Rene on 03/19/2017, POD#2 -Cont hip precautions, use of abduction pillow when in bed d/t confused state -Cont PT/OT, assisted ambulation w/ walker as tolerated -Cont current pain regimen as tolerated, monitor for increased confusion -Cont SCDs and TEDs for VTE mechanical prophylaxis -Cont Lovenox for VTE chemoprophylaxis per medicine service -NS has signed off at this time -Pt likely to d/c to [facility] when cleared 03/21/17 11:10 Subjective: Pt seen at bedside. He again cannot recall specifically why he is here, but states he has no significant pain at this time. He states he is tolerating his diet and medications well. He states he lives at [facility], and would like to return there when possible. He again denies any pantoja/sob,cp, dizziness, syncope, sob, abd pain, n/v, or new onset n/t. The pt reports he was up in the chair several times yesterday w/ PT/OT, and has been ambulating with a walker. He has no additional concerns or complaints at this time. Objective: Vital Signs Temp Pulse Resp BP Pulse Ox 36.4 C 107 H 16 96/77 L 91 L 03/21/17 08:00 03/21/17 08:00 03/21/17 08:00 03/21/17 08:00 03/21/17 08:00 Laboratory Results 03/21/17 04:18 03/21/17 04:18 03/20/17 03/21/17 03/22/17 05:59 05:59 05:59 Intake Total 2127 700 1400 Output Total 2305 425 Balance -566 973 9039 PT 14.7 SEC (12.0-15.0) 03/19/17 08:43 INR 1.15 (0.83-1.16) 03/19/17 08:43 Pt seen at bedside. He is A&O to place and time, confusion appears unchanged since yesterday. He cannot recall why he is here or Wednesday's procedure. VSS. Exam of RLE reveals post operative dressing, no significant drainage, erythema, calor or induration noted, intact dean. Dressing changed. Thigh compartment is supple. Post calves are NTTP, no palpable vascular cords, neg Qiana's bilat. Pt moves leg and foot well. DNVI BLE. ICD10 Worksheet Patient Problems: Problems Problem Status Onset Femoral neck fracture Acute Petechial hemorrhage Acute <Filippo Rene R - Last Filed: 03/21/17 12:30> SOAP Progress Note Assessment/Plan: Assessment: Agree with above. Exam unchanged with BLEs DNVI. Plan: as listed above. 03/21/17 12:29 Objective: Vital Signs Temp Pulse Resp BP Pulse Ox 36.4 C 96 20 115/68 98 03/21/17 11:59 03/21/17 11:59 03/21/17 11:59 03/21/17 11:59 03/21/17 11:59 Laboratory Results 03/21/17 04:18 03/21/17 04:18 03/20/17 03/21/17 03/22/17 05:59 05:59 05:59 Intake Total 2127 700 1400 Output Total 2305 425 Balance -701 411 1817 PT 14.7 SEC (12.0-15.0) 03/19/17 08:43 INR 1.15 (0.83-1.16) 03/19/17 08:43
--- NOTE | 2017-03-21 11:55 | HOSPPROG ---
Hospitalist Progress Note Assessment/Plan: 86M presented from [facility] with likely mechanical fall. PMH significant for dementia with plans to move to memory unit soon. Found to have R femoral neck fx and small ICH. #. R fem neck fx s/p R hemiarthroplasty POD#2 reports no hip pain currently PT/OT recommending SNF rehab #. small intracranial hemorrhage CT stable NSG has cleared to start VTE ppx follow up as outpatient with Dr. Jacob 2-3 weeks #. dementia: likely stable no family present for reviewing care today #. hypoxia: on 2-3 lpm to maintain saturations repeat CXR shows small samir pleural effusions and increased sized of pulmonary vessels with increased interstitial opacities suggestive of CHF hold IVF/ encouraged patient to drink check echo and BNP will defer giving Lasix for now #. urinary retention: kumari had to be reinserted due to frequency/urinary retention #. tachycardia: ECG shows ST with PACs/PSVT HR improved #. DVT ppx: Enox #. Dispo: > 48 hours and then likely d/c to rehab Subjective: Reports no hip pain. Did not recall having hip fx and surgery. No dyspnea. Objective: Vital Signs Temp Pulse Resp BP Pulse Ox 97.6 F 107 H 16 96/77 L 91 L 03/21/17 08:00 03/21/17 08:00 03/21/17 08:00 03/21/17 08:00 03/21/17 08:00 Laboratory Results 03/21/17 04:18 03/21/17 04:18 03/20/17 03/21/17 03/22/17 05:59 05:59 05:59 Intake Total 2127 700 1400 Output Total 2305 425 Balance -336 817 2003 PT 14.7 SEC (12.0-15.0) 03/19/17 08:43 INR 1.15 (0.83-1.16) 03/19/17 08:43 - Physical Exam Constitutional: no apparent distress Eyes: anicteric sclera Ears, Nose, Mouth, Throat: hard of hearing Cardiovascular: regular rate and rhythym, no murmur, rub, or gallop Respiratory: no respiratory distress, reduced air movement Skin: warm, normal color ICD10 Worksheet Patient Problems: Problems Problem Status Onset Femoral neck fracture Acute Petechial hemorrhage Acute
[2017-03-22 05:13] LABS: % IMMATURE GRANULYOCYTES 0.6 % (0.0-1.1); ABSOLUTE IMMATURE GRANULOCYTES 0.08 10^3/uL (0.00-0.10); ADD DIFF? NO; ADD MORPH? NO; ADD SCAN? NO; ATYPICAL LYMPHOCYTE FLAG 0 (0-99); FRAGMENT RBC FLAG 0 (0-99); HEMATOCRIT 33.6 % (40.0-51.0); HEMOGLOBIN 11.3 g/dL (13.7-17.5); LEFT SHIFT FLG 10 (0-99); LIPEMIA HEMOLYSIS FLAG 80 (0-99); MEAN CELL HEMOGLOBIN 31.8 pg (27.9-34.1); MEAN CELL HEMOGLOBIN CONCENTR. 33.6 g/dL (32.4-36.7); MEAN CELL VOLUME 94.6 fL (81.5-99.8); MEAN PLATELET VOLUME 10.8 fL (8.7-11.7); PLATELET CLUMPS FLAG 0 (0-99); PLATELET COUNT 161 10^3/uL (150-400); RED BLOOD CELL COUNT 3.55 10^6/uL (4.40-6.38)
--- NOTE | 2017-03-22 06:39 | SOAPPROG ---
SOAP Progress Note Assessment/Plan: Assessment/Plan: R femoral neck fracture s/p R hip hemiarthroplasty performed by Dr. Rene on 03/19/2017, POD#3 -Cont hip precautions, use of abduction pillow when in bed d/t confused state -Cont PT/OT, assisted ambulation w/ walker as tolerated -Cont current pain regimen as tolerated, monitor for increased confusion -Cont SCDs and TEDs for VTE mechanical prophylaxis -Cont Lovenox for VTE chemoprophylaxis per medicine service, recommend 40mg qday for 21 days postop upon d/c -NS has signed off at this time -[facility]/OT approval, and medicine approval -Pt will f/u w/ Dr. Rene as an outpatient 10-14 days postop 03/22/17 06:38 Subjective: Pt seen at bedside. He reports he has no significant pain at this time. He states he is tolerating his diet and medications well. He again states he lives at [facility], and would like to return there when possible. The pt again denies any pantoja, sob,cp, dizziness, syncope, abd pain, n/v, or new onset n/t. The pt reports he was up in the chair several times yesterday w/ PT/OT, and has been ambulating with a walker. He has no additional concerns or complaints at this time. Objective: Vital Signs Temp Pulse Resp BP Pulse Ox 36.6 C 94 18 111/65 98 03/22/17 04:00 03/22/17 04:00 03/22/17 04:00 03/22/17 04:00 03/22/17 04:00 Laboratory Results 03/22/17 04:35 03/21/17 04:18 03/21/17 03/22/17 03/23/17 05:59 05:59 05:59 Intake Total 700 1600 Output Total 425 700 Balance 275 900 PT 14.7 SEC (12.0-15.0) 03/19/17 08:43 INR 1.15 (0.83-1.16) 03/19/17 08:43 Pt seen at bedside. He is A&O to place and time, confusion appears unchanged since yesterday. He cannot recall Wednesday's procedure, but does note that he knows his hip was fractured. VSS, H&H stable. Exam of RLE reveals post operative dressing, intact and dry. Surgical incision appears to be healing well, no significant drainage, erythema, calor or induration noted, intact dean. Thigh compartment is supple. Post calves are NTTP, no palpable vascular cords, neg Qiana's bilat. Pt moves leg and foot well. DNVI BLE. ICD10 Worksheet Patient Problems: Problems Problem Status Onset Femoral neck fracture Acute Petechial hemorrhage Acute
[2017-03-22] MEDS: MULTIVITAMINS 1 EACH TAB PO SCH (09:17)
[2017-03-22] MEDS: ENOXAPARIN 40 MG/0.4 ML SYR SC SCH (09:18)
--- NOTE | 2017-03-22 11:18 | HOSPPROG ---
Hospitalist Progress Note Assessment/Plan: 86M [place] with likely mechanical fall. PMH significant for dementia with plans to move to memory unit soon. Found to have R femoral neck fx and small ICH. today is my 1st encounter with the patient. Chart reviewed. #. R fem neck fx s/p R hemiarthroplasty POD#3 reports no hip pain currently PT/OT recommending SNF rehab Right hip precautions, abductor pillow in place while in bed #. small intracranial hemorrhage CT stable NSG has cleared to start VTE ppx follow up as outpatient with Dr. Jacob 2-3 weeks #.systolic heart failure (ef 20%) and diastolic heart failure doesn't want a heart catheterization he is ok with medications spoke with Cardiology and they will see bnp is elevated at 8370 #. dementia: likely stable I suspect this is his baseline he has confusion about why he is here #. hypoxia: on one liter today chest xray shows bilateral pleural effusions #. urinary retention: kumari had to be reinserted due to frequency/urinary retention #. tachycardia: ECG shows ST with PACs/PSVT HR improved #. DVT ppx: Enox #. Plan : spoke with patient and his MPOA (only living relative in [place]/ [place])/ patient would like treatment for his heart, but no other procedures. He is anxious to return to his home at / to go to to [facility]. Subjective: has no complaints. Objective: Vital Signs Temp Pulse Resp BP Pulse Ox 36.4 C 87 20 101/74 98 03/22/17 07:38 03/22/17 07:38 03/22/17 07:38 03/22/17 07:38 03/22/17 07:38 Laboratory Results 03/22/17 04:35 03/21/17 04:18 03/21/17 03/22/17 03/23/17 05:59 05:59 05:59 Intake Total 700 1600 Output Total 425 700 Balance 275 900 PT 14.7 SEC (12.0-15.0) 03/19/17 08:43 INR 1.15 (0.83-1.16) 03/19/17 08:43 - Physical Exam Constitutional: no apparent distress, not in pain Eyes: PERRL Ears, Nose, Mouth, Throat: hard of hearing Cardiovascular: regular rate and rhythym, systolic murmur Respiratory: no respiratory distress, reduced air movement Gastrointestinal: normoactive bowel sounds Skin: warm Musculoskeletal: muscular tenderness Neurologic: other (alert and oriented to himself, but not to place or situation) Psychiatric: interacting appropriately, not anxious ICD10 Worksheet Patient Problems: Problems Problem Status Onset Femoral neck fracture Acute Petechial hemorrhage Acute
[2017-03-22] MEDS ORDERED: POLYETHYLENE GLYCOL 3350 17 GM PKT PO PRN (12:33)
[2017-03-22] MEDS ORDERED: LACTULOSE 20 GM/30 ML UDCUP PO PRN (12:33)
[2017-03-22] MEDS ORDERED: MAGNESIUM HYDROXIDE 30 ML UDCUP PO PRN (12:33)
[2017-03-22] MEDS ORDERED: BISACODYL 10 MG SUPP PR PRN (12:33)
[2017-03-22] MEDS: SENNOSIDES/DOCUSATE SODIUM TAB PO SCH ×2 (15:02→20:43)
--- NOTE | 2017-03-22 15:37 | ECHO ---
[id number] + + [address] : : [place] [address] : : [phone] + + Adult Echocardiographic Report + ----+ :Name: ROYAL GARCÍA Kacye Date: 03/22/2017 08:14 AM : : Hospital Admission Number: [id number] Location: 343: :: 1930 Gender: Male Height: 66 in : :Age: 86 yrs Race: WH Weight: 140 lb : :Reason For Study: CHF by CXR : : BSA: 1.7 meters2 : + ----+ MMode/2D Measurements \T\ Calculations IVSd: 0.53 cm LVIDd: 6.2 cm FS: 12.4 % MV Diam: 3.7 cm LVPWd: 1.1 cm LVIDs: 5.4 cm EDV(Teich): 191.9 ml ESV(Teich): 141.8 ml EF(Teich): 26.1 % Ao root diam: 3.0 cmLVLd ap4: 7.9 cm SV(MOD-sp4): 22.0 ml LA dimension: 5.1 cmEDV(MOD-sp4): 90.0 ml LVLs ap4: 7.2 cm ESV(MOD-sp4): 68.0 ml EF(MOD-sp4): 24.4 % Normal Measurement Values: + + :LVIDd (3.5-5.7cm) IVSd (0.6-1.1cm) LVPWd (0.6-1.1cm) Aortic Root (2.0-3.7cm)Left Atrium (1.5-4.0cm): :LV Vol(d) (76-115ml) LV Vol(s) (29-48ml) Ejec Fraction (50-65%)PV Jcarlos (0.6- 1.2m/s) TV Jcarlos (0.4-1.0m/s) : :MV E Jcarlos (0.8-1.0m/s)MV A Jcarlos (0.3-1.0m/s)LVOT Jcarlos (0.7-1.2m/s) Asc Ao Jcarlos ( 0.9-1.8m/s) : + + Doppler Measurements \T\ Calculations MV E max jcarlos: MV V2 mean: Ao mean PG: LV V1 max: 108.6 cm/sec 54.1 cm/sec 13.4 mmHg 67.1 cm/sec MV A max jcarlos: MV mean P.5 mmHgAo V2 mean: LV V1 max P.2 cm/sec MV V2 VTI: 25.9 cm 170.5 cm/sec 1.8 mmHg MV E/A: 1.7 MV area (1 diam): Ao V2 VTI: 48.0 cm LV V1 mean P.9 cm2 0.97 mmHg MV Flow area(1diam): LV V1 mean: 45.6 cm/sec 10.9 cm2 LV V1 VTI: 12.8 cm MR max jcarlos: MR(RF 1 diam): 9.5 %SV(MV 1 diam): TR max jcarlos: 415.3 cm/sec 282.4 ml 335.3 cm/sec MR max PG: SI(MV 1 diam): TR max P.0 mmHg 164.3 ml/m2 45.0 mmHg RAP systole: 10.0 mmHg RVSP(TR): 55.0 mmHg RF(MV,Ao)(1 diam): -0.22 Left Ventricle The left ventricle is mildly dilated. There is normal left ventricular wall thickness. EF estimate is 20%. There is Doppler evidence for diastolic dysfunction. The left ventricular ejection fraction is calculated at 26.1 %. There is severe global hypokinesis of the left ventricle. Right Ventricle The right ventricle is normal in size and function. Atria The left atrium is severely dilated. The right atrium is mildly dilated. Mitral Valve Calcified mitral apparatus. There is moderate to severe mitral regurgitation. Tricuspid Valve Normal tricuspid valve. There is moderate tricuspid regurgitation. Right ventricular systolic pressure is 55mmHg. There is Doppler evidence for mild pulmonary hypertension. Aortic Valve Moderate to severe aortic valve calcification. Mild valvular aortic stenosis. AV max PG is 23mmHG. AV mean PG is 13mmHG. Dimension less index is .26 cm (severe range). Trace aortic regurgitation. Pulmonic Valve The pulmonic valve is not well visualized. Moderate pulmonic insufficiency (by color flow). Great Vessels The aortic root is normal size. Pericardium/Pleural There is no pericardial effusion. Left pleural effusion. Conclusion A complete two-dimensional transthoracic echocardiogram was performed (2D, M-mode, Doppler and color flow Doppler). (1) Left ventricular systolic ejection fraction was severely reduced (20%) - severe, global hypokinesis (2) No left ventricular hypertrophy (3) Diastolic dysfunction was present - patient appeared to be in atrial fibrillation (4) Normal right ventricular size with moderate suppression of systolic function (5) Severe dilation of the left atrium and mild dilation of the right atrium (6) Moderate to severe mitral regurgitation with calcified annulus (7) Trileaflet aortic valve with moderate to severe sclerosis. Mild aortic stenosis was noted. Trace insufficiency - mean gradient was 13 mm Hg with dimensionless index of 0.26 cm (8) Moderate tricuspid regurgitation - RVSP was estimated to be 55 mm Hg (9) Poor visualization of the pulmonic valve with moderate insufficiency (10) Left sided pleural effusion was noted (no pericardial effusion) (11) No comparison echocardiograms Final Reading Physician: Janet Carey signed on 03/22/2017 03:37 PM Ordering Physician: Diann Cruz Performed By: Terri Tanner, NANCY
--- NOTE | 2017-03-22 16:11 | CPEKG ---
Heart Rate: 94 RR Interval: 638 P-R Interval: 191 QRSD Interval: 118 QT Interval: 361 QTC Interval: 452 P [place]: 0 QRS [place]: 164 EKG Severity - ABNORMAL ECG - EKG Impression: WANDERING PACEMAKER EKG Impression: NONSPECIFIC INTRAVENTRICULAR CONDUCTION DELAY Electronically Signed By: Nadine Vaughan 22-Mar-2017 17:25:46
[2017-03-22] MEDS ORDERED: FUROSEMIDE 20 MG/2 ML VIAL IVP ONE (16:12)
[2017-03-22] MEDS: CARVEDILOL 3.125 MG TAB PO SCH (17:25)
--- NOTE | 2017-03-23 05:43 | SOAPPROG ---
SOAP Progress Note Assessment/Plan: Assessment/Plan: R femoral neck fracture s/p R hip hemiarthroplasty performed by Dr. Rene on 03/19/2017, POD#3 -Cont hip precautions, use of abduction pillow when in bed d/t confused state -Cont PT/OT, assisted ambulation w/ walker as tolerated, increased encouragement w/ OOB/ambulation -Cont current pain regimen as tolerated, monitor for increased confusion -Cont SCDs and TEDs for VTE mechanical prophylaxis -Cont Lovenox for VTE chemoprophylaxis per medicine service, recommend 40mg qday for 21 days postop upon d/c -NS has signed off at this time -Cardiology has been consulted for low EF -Possible d/c to SNF pending medicine, cardiology, placement and PT/OT approval -Pt will f/u w/ Dr. Rene as an outpatient 10-14 days postop 03/23/17 05:43 Subjective: Pt seen at bedside, awoken for exam. He reports he has no significant pain at this time. He states he is tolerating his diet and medications well. He again states he lives at [facility], and would like to return there if possible. The pt continues to deny any pantoja, sob,cp, dizziness, syncope, abd pain, n/v, or new onset n/t. The pt reports he was up in the chair several times yesterday w / PT/OT, and has been ambulating with a walker. He has no additional concerns or complaints at this time. Nursing report states no issue overnight, however, the pt continues to have issues with his abduction pillow and kumari. Cont to monitor, and if this continues to be an issue, may need a sitter. Objective: Vital Signs Temp Pulse Resp BP Pulse Ox 36.6 C 88 18 115/67 93 03/23/17 03:26 03/23/17 03:26 03/23/17 03:26 03/23/17 03:26 03/23/17 03:26 Laboratory Results 03/22/17 04:35 03/21/17 03/22/17 03/23/17 05:59 05:59 05:59 Intake Total 700 1600 Output Total 425 700 800 Balance 275 900 -800 PT 14.7 SEC (12.0-15.0) 05/12/17 08:43 INR 1.15 (0.83-1.16) 03/19/17 08:43 Pt seen at bedside, awoken for exam. He is A&O to place and time, confusion appears unchanged over last three days. VSS, H&H stable. Exam of RLE reveals post operative dressing, intact and dry. Surgical incision appears to be healing well, no significant drainage, erythema, calor or induration noted, intact dean. Thigh compartment is supple. Post calves are NTTP, no palpable vascular cords, neg Qiana's bilat. Pt moves leg and foot well. DNVI BLE. ICD10 Worksheet Patient Problems: Problems Problem Status Onset Femoral neck fracture Acute Petechial hemorrhage Acute
[2017-03-23 05:55] LABS: ANION GAP 6 mEq/L (8-16); CALCIUM 8.6 mg/dL (8.5-10.4); CARBON DIOXIDE 27 mEq/l (22-31); CHLORIDE 103 mEq/L (97-110); CREATININE 0.6 mg/dL (0.7-1.3); GLOMERULAR FILTRATION RATE > 60; GLUCOSE 92 mg/dL (70-100); POTASSIUM 4.6 mEq/L (3.5-5.2); SODIUM 136 mEq/L (134-144)
--- NOTE | 2017-03-23 07:10 | GCON ---
[f rep st] CONSULTATION CARDIOLOGY CONSULTATION. REASON FOR CONSULTATION: Cardiomyopathy with ejection fraction of 20%. HISTORY OF PRESENT ILLNESS: The patient is an 86-year-old male who lives independently at [facility]. 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 He presented to the hospital on March 19 for a fall, presumably mechanical. He was found to have a right femoral neck fracture and small intracranial hematoma. He did undergo surgery by Dr. Rene on the . Also noted, he had a CT of the head done, noting minimal hemorrhage in the frontal lobes and right posterior temporal lobe. He has been seen by Neurosurgery by Dr. Jacob, who he and his team determined that is stable. He had been doing well progressively postoperatively , but on the , was noted to remain hypoxic post surgery, requiring 2 to 3 L per minute of oxygen to keep his saturation greater than 90% and he was noted to be tachycardiac with EKG showing sinus tach with PACs and PSVT. At that time , with no improvement in symptoms, the following day, echocardiogram was ordered , which was done this morning showing the patient had a severely reduced left ventricular ejection fraction of 20% with severe global hypokinesis, diastolic dysfunction, normal RV size with moderate suppressed systolic function, severely dilated LA, mildly dilated RA, moderate to severe MR with calcified annuluses, moderate to severe TR, mild aortic stenosis was noted, trace AI, mean gradient across aortic valve was 13 mmHg. Moderate TR, RVSP was estimated at 55 mm Hg, and left-sided pleural effusion was noted. At that time, the Hospitalist Services notified us for consultation. The patient is on, my physical examination, pleasantly confused. He currently thinks that he is in a different state. He denies any chest pressure or pain, reports no significant past history of coronary artery disease, or any heart health issues. Denies any history of palpitations, does report that he thinks he has passed out once or twice in his life, but uncertain of cause. He does report that when he was a child his physician noted something when listening to his chest and had just only followed it. He reports he has been a very active person with no significant medical problems. I have also called his medical power of deputy prosecuting attorney, his cousin, who confirms that the patient has been always healthy and active, reporting that he has never had any significant cardiac problems. Patient's cardiac risk factors include age, sex, previous smoker, smoking pipe in his younger years, and an occasional cigar nowadays, and uncertain of cholesterol status, and reports no significant family history of coronary artery disease. PAST MEDICAL HISTORY: Dementia, but patient was living in independent living at [facility]. PAST SURGICAL HISTORY: The patient reports having surgery on both knees, he thinks total replacement. Reporting no other significant history, besides recent right femoral fracture and intracranial hematoma. FAMILY HISTORY: Patient and his 1st cousin, who is his medical power of deputy prosecuting attorney, reports no significant family history of coronary artery disease. 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 He reports previous smoking pipe and has quit for greater than 40 years, but does report occasional cigar smoke once or twice a year. Denies of any alcohol use, denies any illicit drug use. Prior to admission was living in independent living at [facility]. ALLERGIES: Patient has no known drug allergies. MEDICATION: The patient's only listed home medications is multivitamins once daily. REVIEW OF SYSTEMS: A 10-point review of systems done on this patient, all negative, except as mentioned above. PHYSICAL EXAM: GENERAL APPEARANCE: Medium built, elderly, male. He is confused to time and place, but does follow commands and is pleasant. VITAL SIGNS: Current blood pressure of 122/102, heart rate is 61 and regular, respirations 16, saturating 92% on room air, temperature of 36.7 degrees Celsius. HEENT: Head is normocephalic. The patient does have ecchymoses on the left anterior forehead from previous fall. Mucous membranes are pink and moist. NECK: Trachea is midline, +2 carotid pulses bilateral, no auscultated bruits, 5 to 6 cm of JVD noted above sternal notch at a 45-degree angle. RESPIRATORY: Lungs diminished in bases, bilateral, no rhonchi, rales or wheezing noted. No accessory muscle use. No intercostal muscle retraction noted. CARDIAC: Regular rate, irregular rhythm, S1 and S2, no S3 noted, +2 mitral valve regurgitation noted, +2/6 systolic murmur noted. ABDOMEN: Soft, nontender, bowel sounds x4 quadrants. No organomegaly and no palpable masses. SKIN: Pale, warm, dry. The patient noted to have DuoDERM to back wound, dressing to right hip clean, dry, and intact with no redness, swelling, or drainage. Ecchymoses noted on right upper shoulder, trace to +1 peripheral edema. Bilateral lower extremities to knees. VASCULAR: +2 carotids bilateral , +2 radials bilateral, +1 post tibial pulses bilateral. LABORATORY STUDIES: Most recent laboratory studies showed WBC of 12.37, hemoglobin 11.3, hematocrit 33.6, platelet count 161. BNP of 8378 drawn today. Yesterday sodium was 132, potassium 4.2, chloride 104, CO2 25. BUN 24, creatinine 0.7, glucose 95. Calcium 8.3. STUDIES: Echocardiogram as mentioned above, done today. Chest x-ray, dated March 20, showed worsening congestive heart failure. Head CT done on March 19 showing minimal petechial hemorrhaging identified in the right frontal lobe and right posterior temporal lobe regions. No hydrocephalus or mass effect. Cerebral vascular arthrosclerosis. No definitive acute infarction. Mild to moderate diffuse atrophy and moderate microvascular ischemia. No skull fracture. Electrocardiogram, dated March 20, 2017, shows sinus tach with episodes of PSVT and PACs, first-degree AV block, incomplete right bundle branch block, left anterior fascicular block. ASSESSMENT AND PLAN: 1. Cardiomyopathy: Newly found cardiomyopathy with ejection fraction estimated only 20%. I have discussed both with the patient and his medical power of deputy prosecuting attorney about potential treatment options, including coronary catheterization, stress testing, pacemaker implantation, AICD precautions, life vest and possibly other invasive procedures that could be done. I have also discussed risks of these procedures, which I feel the patient would be high risk due to his age and mentation. After further discussion with the patient and his cousin (SAM) they have both decided that he would only like to undergo medical therapy at this time. We will plan on starting him on carvedilol at 3.125 mg p.o. twice daily, consideration of starting him on an SHUN inhibitor at later time. Due to his JVD and elevated BNP, I will order him to give IV Lasix 20 mg IV today. 2. Irregular pulse: Patient noted to have sinus tach with episodes of paroxysmal supraventricular tachycardia. Today his pulse is very irregular on physical examination, I have ordered for an EKG, concerning about potentially patient is in atrial fibrillation. Per the echo report, the patient was thought to be in atrial fibrillation. As mentioned above, we will start him on beta blockage therapy, I do feel he has a significant CHADS VASc, with recent intracranial hematoma, fall history, and advanced age, he is also at high risk for bleeding. I have discussed with family, we will hold off anticoagulation at this time. If okay by Neurosurgery, consideration of starting him on aspirin 81 mg if in A-fib. 3. Valvular heart disease: The patient was noted to have moderate to severe mitral regurgitation with calcified anulus. He is also noted to have mild aortic stenosis with mean gradient of 13 mmHg and moderate tricuspid regurgitation. We will start beta-sarkis management, as mentioned above, and diurese. Continue to follow. 4. Right femoral neck fracture, status post repair: Continue following up with Orthopedics as planned. 5. Intracranial hemorrhage. CT stable. It has been signed off by Neurology. We will attempt to contact him to see if we may start on antiplatelet therapy. Thank you for this consultation. We will be glad to follow along with you. /[id number]/MODL MTDD
[2017-03-23] MEDS: ENOXAPARIN 40 MG/0.4 ML SYR SC SCH (09:50)
[2017-03-23] MEDS: SENNOSIDES/DOCUSATE SODIUM TAB PO SCH ×2 (09:50→23:02)
[2017-03-23] MEDS: MULTIVITAMINS 1 EACH TAB PO SCH (09:50)
[2017-03-23] MEDS: CARVEDILOL 3.125 MG TAB PO SCH ×2 (09:51→17:58)
[2017-03-23] MEDS: FUROSEMIDE 20 MG TAB PO SCH (14:38)
--- NOTE | 2017-03-23 16:33 | HOSPPROG ---
Hospitalist Progress Note Assessment/Plan: 86M presented from [facility] with likely mechanical fall. PMH significant for dementia with plans to move to memory unit soon. Found to have R femoral neck fx and small ICH. #. R fem neck fx s/p R hemiarthroplasty POD#4 reports no hip pain currently PT/OT recommending SNF rehab Right hip precautions, abductor pillow in place while in bed #. small intracranial hemorrhage CT stable NSG has cleared to start VTE ppx follow up as outpatient with Dr. Jacob 2-3 weeks #. systolic heart failure (ef 20%) and diastolic heart failure doesn't want a heart catheterization started on Lasix and beta sarkis/ holding asa due to recent ICH, bp is too low for ACEI at this time #. cardiomyopathy cont med management/ appreciate cardiology #. valvular heart disease #. tachyarrhythmia appears to be afib at times and sometimes has P waves present not a candidate for OAC #. dementia: likely stable I suspect this is his baseline #. hypoxia: on one liter today chest xray shows bilateral pleural effusions #. urinary retention: kumari had to be reinserted due to frequency/urinary retention #. tachycardia: ECG shows ST with PACs/PSVT HR improved #. DVT ppx: LMWH #. Plan : poss dc tomorrow if improving Subjective: Dwayne feels tired/ no complaints of pain. Objective: Vital Signs Temp Pulse Resp BP Pulse Ox 36.8 C 95 20 101/83 H 100 03/23/17 15:31 03/23/17 15:31 03/23/17 15:31 03/23/17 15:31 03/23/17 15:31 Laboratory Results 03/22/17 04:35 03/23/17 04:15 03/22/17 03/23/17 03/24/17 05:59 05:59 05:59 Intake Total 1600 200 200 Output Total 700 2000 Balance 900 -1800 200 PT 14.7 SEC (12.0-15.0) 03/19/17 08:43 INR 1.15 (0.83-1.16) 03/19/17 08:43 - Physical Exam Constitutional: chronically ill appearing Eyes: PERRL Cardiovascular: irregularly irregular Respiratory: no respiratory distress, reduced air movement Skin: warm Musculoskeletal: generalized weakness Neurologic: other (alert and oriented to himself and place) Psychiatric: interacting appropriately, not anxious ICD10 Worksheet Patient Problems: Problems Problem Status Onset Femoral neck fracture Acute Petechial hemorrhage Acute
--- NOTE | 2017-03-23 18:35 | PDCARPN ---
Cardiology Progress Note Chief Complaint: Patient reporting "feeling good" Assessment/Plan: Assessment: 86-year-old male with no significant cardiac history, mild dementia. Admitted on 03/19/2017 for fall with right femoral head fracture, noted to have stable intracranial hemorrhage on CT. Has been seen by Neurosurgery. Underwent right hemiarthroplasty by Dr. Sommer 03/19. Postoperatively noted to be mildly hypoxic, requiring oxygen therapy. Also noted episodes of tachycardia. Echocardiogram done on 03/22/2017 showing severely reduced LV function with EF estimated at 20% with global hypokinesis, diastolic dysfunction, normal RV size with moderate suppression of systolic function, severely dilated LA, mildly dilated RA, moderate to severe MR with calcified annulus is, moderate to severe TR, mild aortic stenosis with mean gradient of 13 mm Hg, trace AI, moderate TR, RVSP elevated at 55 mm Hg, and a left-sided pleural effusion. BNP on 03/22 elevated at 8370. Patient confused, but pleasant. Spoke to his medical power of regulatory attorney, reporting only wanting medical management with no invasive procedures. Yesterday patient started on carvedilol, and given IV Lasix. Noted postop anemia, which has improved, H&H 03/22 11 in 33.6. Today, noted weight is still 0.7 kilos above admission weight. Did have adequate diuresis 1800 mL net out yesterday. Continues to have sinus rhythm with frequent PACs, episodes of PSVT. No change in patient's mentation, denies of any chest pressure or pain. Reporting no significant shortness of breath. Heart rate down 70s to 80s. SpO2 on room air 94%. Hyponatremia corrected at 130s, creatinine 0.6. Plan: 1. Cardiomyopathy: Continue on current carvedilol at 3.125 mg twice daily, systolic blood pressure running in 100s, will hold off on starting him on SHUN- inhibitor, potentially as an outpatient. Good diuresis with IV Lasix. Continues to have JVD, Transition to oral at 20 mg p.o. q.day. Repeat BMP in a.m.. 2. Irregular pulse: Repeated electrocardiogram done yesterday showing sinus rhythm comma frequent PACs. Right bundle branch block. Beta-sarkis as mentioned above. 3. Valvular heart disease: Echo noting moderate to severe MR, mild a , and moderate TR. Elevated BNP on 03/22, good diuresis with IV Lasix. Transition to oral Lasix as mentioned above. Continue on Coreg. 4. Right femoral neck fracture: s/p hemiarthroplasty 5. Intracranial hemorrhage: Stable by CT, cleared by Neurosurgery 6. Dementia: Unchanged. Likely stable. 03/23/17 18:53 Subjective: patient denies of any chest pressure, pain, orthopnea, palpitations, lightheadedness Reviewed/Discussed With: hospitalist (Ivy Ball NP), other (Dr Zavala) Objective: Vital Signs (8 Hrs) Temp Pulse Resp BP Pulse Ox 03/23/17 15:31 36.8 C 95 20 101/83 H 100 03/23/17 11:25 36.4 C 76 24 H 102/57 L 94 Intake/Output (24 Hrs) 03/22/17 03/23/17 03/24/17 05:59 05:59 05:59 Intake Total 1600 200 400 Output Total 700 2000 450 Balance 900 -1800 -50 Intake: Oral (ml) 700 200 400 IV Infused (ml) 900 Ns 1,000 ml @ 75 mls/hr 900 IV CONT STEPH Rx#: [id number] Output: Urine (ml) 700 2000 450 Catheter 700 2000 450 Other: Weight 64.3 kg Intake Quantity Yes Yes Sufficient Number of Voids Catheter 1 Number of Stools Bedside Commode 1 Result Diagrams: 03/22/17 04:35 03/23/17 04:15 - Physical Exam Constitutional: no apparent distress, other ( elderly male.) Ears, Nose, Mouth, Throat: moist mucous membranes Cardiovascular: systolic murmur ( 2/6 systolic murmur noted along left sternal border.), irregularly irregular, jugular vein distention ( 5-6 cm above sternal notch at 45 degree angle), pulses symmetric bilat, No carotid bruit Peripheral Pulses: 1+: dorsalis-pedis (R), dorsalis-pedis (L), 2+: carotid (R), carotid (L) Respiratory: other ( diminished in bases bilateral, no rhonchi, rales, or wheezing noted.) Gastrointestinal: normoactive bowel sounds, no tenderness Skin: warm, No no edema ( Trace to +1 peripheral edema bilateral lower extremities to knees.) Neurologic: No AAOx3 ( Alert and oriented x2, uncertain of time or place.) Psychiatric: cooperative, interactive, following commands, not anxious ICD10 Worksheet Patient Problems: Problems Problem Status Onset Femoral neck fracture Acute Petechial hemorrhage Acute
[2017-03-24 05:20] LABS: ANION GAP 5 mEq/L (8-16); CALCIUM 8.7 mg/dL (8.5-10.4); CARBON DIOXIDE 24 mEq/l (22-31); CHLORIDE 103 mEq/L (97-110); CREATININE 0.6 mg/dL (0.7-1.3); GLOMERULAR FILTRATION RATE > 60; GLUCOSE 97 mg/dL (70-100); POTASSIUM 4.4 mEq/L (3.5-5.2); SODIUM 132 mEq/L (134-144)
--- NOTE | 2017-03-24 06:09 | SOAPPROG ---
SOAP Progress Note Assessment/Plan: Assessment/Plan: R femoral neck fracture s/p R hip hemiarthroplasty performed by Dr. Rene on 03/19/2017, POD#5 -Cont hip precautions, use of abduction pillow when in bed d/t confused state -Cont PT/OT, assisted ambulation w/ walker as tolerated, increased encouragement w/ OOB/ambulation -Cont current pain regimen as tolerated, monitor for increased confusion -Cont SCDs and TEDs for VTE mechanical prophylaxis -Cont Lovenox for VTE chemoprophylaxis per medicine service, recommend 40mg qday for 21 days postop upon d/c -NS has signed off at this time -Cardiology has been consulted, cont medication management -Possible d/c to SNF pending medicine, cardiology, placement and PT/OT approval -Pt will f/u w/ Dr. Rene as an outpatient 10-14 days postop 03/23/17 05:43 Subjective: Pt seen at bedside, awoken for exam. He reports he has no significant pain at this time. The pt continues to deny any pantoja, sob,cp, dizziness, syncope, abd pain , n/v, or new onset n/t. The pt reports he was up in the chair several times yesterday w/ PT/OT, and has been ambulating with a walker. He has no additional concerns or complaints at this time. Objective: Vital Signs Temp Pulse Resp BP Pulse Ox 36.5 C 88 17 121/72 H 98 03/24/17 04:00 03/24/17 04:00 03/24/17 04:00 03/24/17 04:00 03/24/17 04:00 Laboratory Results 03/22/17 04:35 03/24/17 04:27 03/23/17 03/24/17 03/25/17 05:59 05:59 05:59 Intake Total 200 550 Output Total 2000 825 Balance -1800 -275 PT 14.7 SEC (12.0-15.0) 03/19/17 08:43 INR 1.15 (0.83-1.16) 03/19/17 08:43 Pt seen at bedside, awoken for exam. He is A&O to place/time, confusion unchanged over last three days. VSS, H&H stable. Exam of RLE reveals post operative dressing, CDI. Surgical incision appears to be healing well, no significant drainage, erythema, calor or induration noted, intact dean. Thigh compartment is supple. Post calves are NTTP, no palpable vascular cords, neg Qiana's bilat. Pt moves leg and foot well, intact to light touch sensation. DNVI BLE. ICD10 Worksheet Patient Problems: Problems Problem Status Onset Femoral neck fracture Acute Petechial hemorrhage Acute
[2017-03-24 07:48] VITALS: RESP 22; TEMP 97.6; O2SAT 90
--- NOTE | 2017-03-24 08:15 | HOSPPROG ---
Hospitalist Progress Note Assessment/Plan: 86M presented from [facility] with likely mechanical fall. PMH significant for dementia with plans to move to memory unit soon. Found to have R femoral neck fx and small ICH. #. R fem neck fx s/p R hemiarthroplasty POD#5 reports no hip pain currently PT/OT recommending SNF rehab Right hip precautions, abductor pillow in place while in bed #. small intracranial hemorrhage CT stable NSG has cleared to start VTE ppx follow up as outpatient with Dr. Jacob 2-3 weeks #. systolic heart failure (ef 20%) and diastolic heart failure doesn't want a heart catheterization started on Lasix and beta sarkis/ holding asa due to recent ICH, bp is too low for ACEI at this time #. cardiomyopathy cont med management/ appreciate cardiology #. valvular heart disease #. tachyarrhythmia appears to be afib at times and sometimes has P waves present not a candidate for OAC #. dementia: likely stable I suspect this is his baseline #. hypoxia: on one liter today chest xray shows bilateral pleural effusions #. urinary retention: kumari had to be reinserted due to frequency/urinary retention #. tachycardia: ECG shows ST with PACs/PSVT HR improved #. DVT ppx: LMWH #. Plan : dc Subjective: has no idea where he is/ feeling fine. Objective: Vital Signs Temp Pulse Resp BP Pulse Ox 36.4 C 99 22 H 110/83 H 90 L 03/24/17 07:42 03/24/17 07:42 03/24/17 07:42 03/24/17 07:42 03/24/17 07:42 Laboratory Results 03/22/17 04:35 03/24/17 04:27 03/23/17 03/24/17 03/25/17 05:59 05:59 05:59 Intake Total 200 550 Output Total 2000 825 Balance -1800 -275 PT 14.7 SEC (12.0-15.0) 03/19/17 08:43 INR 1.15 (0.83-1.16) 03/19/17 08:43 - Physical Exam Constitutional: not in pain, chronically ill appearing Eyes: PERRL, other (glasses) Ears, Nose, Mouth, Throat: hard of hearing Respiratory: no respiratory distress Skin: warm Musculoskeletal: generalized weakness Neurologic: other (alert and oriented only to himself) Psychiatric: interacting appropriately, not anxious ICD10 Worksheet Patient Problems: Problems Problem Status Onset Femoral neck fracture Acute Petechial hemorrhage Acute
--- NOTE | 2017-03-24 08:27 | PDIAF ---
- Diagnosis Diagnosis: r femoral neck fx s/p repair, ICH, cardiomyopathy Code Status: Do Not Resuscitate - Medication Management Discharge Medications: Medications to Continue on Transfer Multivitamins [Multivitamin (*)] 1 each PO DAILY 03/19/17 [Last Taken 03/19/17] Acetaminophen [Tylenol 325mg (*)] 650 mg PO Q4HRS PRN #0 tab 03/24/17 [Last Taken Unknown] Carvedilol [Coreg (*)] 3.125 mg PO BIDMEAL tab 03/24/17 [Last Taken Unknown] Enoxaparin [Lovenox 40 MG (*)] 40 mg SC DAILY syr 03/24/17 [Last Taken Unknown] Furosemide [Lasix 20 MG (*)] 20 mg PO DAILY tab 03/24/17 [Last Taken Unknown] Polyethylene Glycol 3350 [Miralax 17 gm (*)] 17 gm PO DAILY PRN #0 pkt 03/24/17 [Last Taken Unknown] Sennosides/Docusate Sodium [Senokot-S] 1 - 2 tab PO BID tab 03/24/17 [Last Taken Unknown] oxyCODONE IR [Oxycodone Ir (*)] 5 - 10 mg PO Q3HRS PRN #0 tab 03/24/17 [Last Taken Unknown] Discharge Medications: Refer to the Discharge Home Medication list for PRN reason. - Orders Services needed: Registered Nurse, Physical Therapy, Occupational Therapy Diet Texture: Regular Texture Diet, Thin Liquids, Meds Whole in Puree Whitney Stockings Discontinue Date: daily -on for 12/ off for 12 Activity/Weight Bearing Restrictions: 1. Pt is to remain WBAT on his RLE, and ambulate with the use of assistive devices at all times. Continue hip precautions. 2. Pt is to keep his incision sites clean and dry at all times, covering for bathing. 3. Pt is to monitor for signs of infection, including any incisional redness, swelling, warmth, significant pain or discharge, or streaking, as well as monitor for constitutional symptoms such as fevers, chills , nausea or vomiting. He is encouraged to notify the office immediately should any of these occur. 4. Pt is encourage to take his pain medication as instructed, and to contact the office with any pain medication issues. 5. Pt is to continue his anticoagulation as directed, and to wear his WHITNEY hose bilaterally until f/u w/ Dr. Rene in clinic. 6. Pt will follow up w/ Dr. Rene in clinic 10-14 days postoperatively, or sooner with any additional concerns or complaints. The pt is encouraged to contact the office as soon as possible to schedule this appointment at [phone]. Additional: continue lovenox x 15 more days. Patient needs a follow up appointment with Dr Jacob in 2 weeks. - Labs/Radiology BMP Date: 03/26/17 (weekly) CBC Date: 03/26/17 - Follow Up Care Current Providers and Referrals: Filippo Rene MD [Medical Doctor] - (Pt is to follow up w/ Dr. Rene 10-14 days postoperatively, or sooner with any additional concerns or complaints. He is encouraged to contact the office as soon as possible to schedule this appointment.) Patient,NotPresent [Unknown] - As per Instructions Etienne Jacob MD [Medical Doctor] -
[2017-03-24] MEDS: CARVEDILOL 3.125 MG TAB PO SCH (08:52)
[2017-03-24] MEDS: MULTIVITAMINS 1 EACH TAB PO SCH (08:52)
[2017-03-24] MEDS: ENOXAPARIN 40 MG/0.4 ML SYR SC SCH (08:52)
[2017-03-24] MEDS: FUROSEMIDE 20 MG TAB PO SCH (08:54)
[2017-03-24 09:01] VITALS: BP 114/64; PULSE 104
[2017-03-24] MEDS: SENNOSIDES/DOCUSATE SODIUM TAB PO SCH (09:43)
--- NOTE | 2017-03-24 12:56 | GDS ---
[f rep st] DISCHARGE SUMMARY DISCHARGE DIAGNOSES: 1. Right femoral neck fracture. 2. Small intracranial hemorrhage. 3. Systolic heart failure with an ejection fraction of 20%, as well as diastolic heart failure. 4. Cardiomyopathy. 5. Valvular heart disease. 6. Tachyarrhythmia. 7. Dementia. 8. Hypoxemia. 9. Urinary retention. CONSULTATIONS: Filippo Rene MD., Camacho NIDHI Huerta, with cardiology and Dr Jacob with neurosurgery. HOSPITAL COURSE: Briefly, the patient is an 86-year-old male, who lives independently at [facility]. He presented with a fall. He fell on his back step a few days prior to admission. He was sent by EMS for further evaluation. He had some pain in his hip. X-ray performed, which showed a femoral neck fracture. Head CT showed a small 1 cm right frontal petechial hemorrhage without mass effect. He was subsequently seen by the orthopedic surgeon and had surgery on 03/19/2017. He had a right hip hemiarthroplasty done. In regard to his small intracranial hemorrhage, he was seen and evaluated by Dr. Jacob. He will get further followup in the outpatient setting. During his stay, he had some ongoing shortness of breath. He was seen and evaluated by the cardiology team. They noted that he had newly found cardiomyopathy with an EF estimated at 20%. The patient has some dementia. He has 1 living relative. They decided no further interventions to have this done. He has been started on Coreg twice a day and started on Lasix, due to his elevated BNP. At this time, an HSUN inhibitor has not been initiated due to his hypotension. Aspirin therapy was not initiated due to head bleed. It was also noted that he had a regular pulse with noted paroxysmal SVT. He is on a beta-sarkis, and this has improved. Today, he will be discharged to the [facility] facility for further care. HOSPITAL COURSE PER PROBLEM: 1. Right femoral neck fracture. He is status post right hemiarthroplasty, postop day #5. He reports no pain. 2. Small intracranial hemorrhage. CT stable. Neurosurgery cleared him for DVT prophylaxis. He will follow up with Dr. Jacob in 2-3 weeks. 3. Systolic/diastolic heart failure. He was started on Lasix and beta-sarkis therapy. 4. Cardiomyopathy. Continue medical management. 5. Valvular heart disease. 6. Tachyarrhythmia, stable at this time. He gets slightly tachycardiac, but is much improved. 7. Dementia. He is likely at his baseline. 8. Hypoxemia, resolved. 9. Urinary retention. A Blue had to be reinserted. He will need bladder training at the correction facility. PENDING LABS: His hip specimen is pending. CONDITION AT DISCHARGE: Stable. Blood pressure is 110/83, heart rate is 99, respiratory rate is 17, O2 saturation on room air 90%, temperature is 36.4 Celsius. MEDICATIONS AT DISCHARGE: Please see the EMR. DISCHARGE INSTRUCTIONS: 1. Further followup with Dr. Rene. 2. Follow up with Dr. Jacob in 2-3 weeks. 3. Weightbearing as tolerated on his right lower extremity and using an assistive device. 4. Continue Lovenox for 15 days. Greater than 30 minutes discharging and coordinating care. /[id number]/MODL MTDD
== END 2017-03-24 11:13 | DRG 956 ==
LOC: EDUNIT# → F3N 11:31
PROVIDERS: ADMIT Student in an Organized Health Care Education/Training Program; ATTEND Hospitalist
PROC: 0SRR019 Replacement of Right Hip Joint, Femoral Surface with Metal Synthetic Substitute, Cemented, Open Approach (ICD-10-PCS; principal; 2017-03-19 17:00)
DX: S72.041A Displaced fracture of base of neck of right femur, initial encounter for closed fracture (principal); S06.300A Unspecified focal traumatic brain injury without loss of consciousness, initial encounter; W01.0XXA Fall on same level from slipping, tripping and stumbling without subsequent striking against object, initial encounter; Y92.018 Other place in single-family (private) house as the place of occurrence of the external cause; Y93.89 Activity, other specified; R33.9 Retention of urine, unspecified; I42.9 Cardiomyopathy, unspecified; I47.1 Supraventricular tachycardia; I34.0 Nonrheumatic mitral (valve) insufficiency; I50.40 Unspecified combined systolic (congestive) and diastolic (congestive) heart failure; J44.9 Chronic obstructive pulmonary disease, unspecified; F03.90 Unspecified dementia, unspecified severity, without behavioral disturbance, psychotic disturbance, mood disturbance, and anxiety; Z96.651 Presence of right artificial knee joint
CPT/HCPCS: 92507-GN; 92523-GN; 92526-GN; 96374; 97116-GP; 97161-GP; 97165-GO; 97535-GO; C1713; G8978-GP-CK; G8979-GP-CJ; G8987-GO-CK; G8988-GO-CI; G8996-GN-CI; G8997-GN-CI; J0171; J0690; J1100; J1170; J1650; J2001; J2405; J2704; J3010